=== PATIENT | female | born 1960 | race American Indian/Alaskan Native ===

== ENCOUNTER 2016-08-03 13:33 | Emergency (ER) | payer MEDICAID, OTHER ==
[2016-08-03 13:52] VITALS: BMI 36.3
[2016-08-03 13:56] VITALS: RESP 18; TEMP 98.8; O2SAT 100
--- NOTE | 2016-08-03 14:16 | ED PDOC ---
Arrival/HPI - General Chief Complaint: ENT Problem Time Seen by Provider: 08/03/16 14:08 Historian: Patient - History of Present Illness Narrative History of Present Illness (Text): 08/03/16 14:11 55yo female with history of hypertension present with complaint of clear productive cough, itchy burning throat and right ear pain x 3days. States she took Loratidine without relieve. Denies fever, chills, chest pain, SOB, sick contact, travel. Past Medical History - Provider Review Nursing Documentation Reviewed: Yes - Infectious Disease Hx of Infectious Diseases: None - Reproductive Menopause: Yes - Cardiac Hx Hypertension: Yes - Psychiatric Hx Substance Use: No - Surgical History Hx Section: Yes (x3) - Anesthesia Hx Anesthesia Reactions: No Hx Malignant Hyperthermia: No Family/Social History - Physician Review Nursing Documentation Reviewed: Yes Family/Social History: Unknown Family HX Smoking Status: Never Smoked Hx Alcohol Use: No Hx Substance Use: No Hx Substance Use Treatment: No Allergies/Home Meds Allergies/Adverse Reactions: Allergies No Known Allergies Allergy (Verified 02/11/14 10:54) Home Medications: Home Meds Medication Instructions Recorded Confirmed Enalapril Maleate [Enalapril] 10 mg PO BID 02/11/14 02/11/14 Review of Systems - Physician Review All systems were reviewed & negative as marked: Yes - Review of Systems Constitutional: Normal Eyes: Normal ENT: Sore Throat, Other (Right ear pain) Respiratory: Cough Cardiovascular: Normal Gastrointestinal: Normal Genitourinary Female: Normal Musculoskeletal: Normal Skin: Normal Neurological: Normal Endocrine: Normal Hemo/Lymphatic: Normal Psychiatric: Normal Physical Exam Vital Signs Reviewed: Yes Vital Signs Temp Pulse Resp BP Pulse Ox 08/03/16 15:48 62 18 155/76 H 100 08/03/16 13:34 98.8 F 67 18 123/79 100 Temperature: Afebrile Blood Pressure: Normal Pulse: Regular Respiratory Rate: Normal Appearance: Positive for: Well-Appearing, Non-Toxic, Comfortable Pain Distress: None Mental Status: Positive for: Alert and Oriented X 3 - Systems Exam Head: Present: Atraumatic, Normocephalic Pupils: Present: PERRL Extroacular Muscles: Present: EOMI Conjunctiva: Present: Normal Ears: Present: Normal, NORMAL TM. No: Erythema Mouth: Present: Moist Mucous Membranes Pharnyx: Present: Normal. No: ERYTHEMA, EXUDATE, TONSILS ENLARGED, Peritonsilar Swelling, Uvular Deviation, Muffled/Hoarse Voice, Strider, Soft Palate/Uvular Edema Neck: Present: Normal Range of Motion Respiratory/Chest: Present: Clear to Auscultation, Good Air Exchange. No: Respiratory Distress, Accessory Muscle Use, Wheezes, Decreased Breath Sounds, Rales, Retracting, Rhonchi, Tachypneic Cardiovascular: Present: Regular Rate and Rhythm, Normal S1, S2. No: Murmurs Abdomen: Present: Normal Bowel Sounds. No: Tenderness, Distention, Peritoneal Signs Back: Present: Normal Inspection Upper Extremity: Present: Normal Inspection. No: Cyanosis, Edema Lower Extremity: Present: Normal Inspection. No: Edema Neurological: Present: GCS=15, CN II-XII Intact, Speech Normal Skin: Present: Warm, Dry, Normal Color. No: Rashes Psychiatric: Present: Alert, Oriented x 3, Normal Insight, Normal Concentration Medical Decision Making ED Course and Treatment: 08/03/16 17:32 Chest xray - NAD PT was treated with Zpack and DC home with same medication for URI. Referred to her PMD. TRT ED for any new or worsening symptoms. - RAD Interpretation Radiology Orders: 08/03/16 14:09 CHEST TWO VIEWS (PA/LAT) [RAD] Stat - Medication Orders Current Medication Orders: Discontinued Medications Azithromycin (Zithromax) 500 mg PO STAT STA PRN Reason: Protocol Stop: 08/03/16 15:20 Last Admin: 08/03/16 16:04 Dose: 500 MG Benzonatate (Tessalon Perles) 100 mg PO ONCE STA Stop: 08/03/16 15:21 Last Admin: 08/03/16 16:04 Dose: 100 MG Disposition/Present on Arrival - Present on Arrival Any Indicators Present on Arrival: No History of DVT/PE: No History of Uncontrolled Diabetes: No Urinary Catheter: No History of Decub. Ulcer: No History Surgical Site Infection Following: None - Disposition Have Diagnosis and Disposition been Completed?: Yes Diagnosis: URI (upper respiratory infection) Disposition: HOME/ ROUTINE Disposition Time: 15:25 Patient Plan: Discharge Condition: STABLE Discharge Instructions (ExitCare): Upper Respiratory Infection (ED) Additional Instructions: Follow up with your doctor Return to ED for any new or worsening symptoms Prescriptions: Benzonatate [Tessalon Perles] 100 mg PO TID #20 sgl Azithromycin [Zithromax] 250 mg PO DAILY #4 tab Referrals: PCP,NO [Primary Care Provider] - Follow up with primary
--- NOTE | 2016-08-03 15:25 | RAD ---
HISTORY: cough COMPARISON: 02/11/2014 TECHNIQUE: Chest PA and lateral FINDINGS: LUNGS: No active pulmonary disease. PLEURA: No significant pleural effusion identified. No pneumothorax apparent. CARDIOVASCULAR: Normal. OSSEOUS STRUCTURES: No significant abnormalities. VISUALIZED UPPER ABDOMEN: Normal. OTHER FINDINGS: None. IMPRESSION: No active disease.
[2016-08-03 15:50] VITALS: BP 155/76; PULSE 62
== END 2016-08-03 16:07 | disposition home or self-care (01) ==
LOC: ED 13:33
DX: J06.9 Acute upper respiratory infection, unspecified (principal); I10 Essential (primary) hypertension

== ENCOUNTER 2016-11-08 13:44 | Emergency (ER) | payer MEDICAID, OTHER ==
[2016-11-08 13:57] VITALS: RESP 20; TEMP 98.1; BMI 36.0
[2016-11-08] MEDS ORDERED: Levalbuterol 1.25 MG/3 ML Inhal Soln UD IH STA (14:00)
[2016-11-08] MEDS ORDERED: Magnesium Sulfate 1 gm in D5W 1 GM/100 ML BAG IVPB ONE (14:08)
[2016-11-08] MEDS ORDERED: Ipratropium 0.02% Inhal Soln (0.5 mg/2.5 ml) UD IH STA (14:11)
--- NOTE | 2016-11-08 14:15 | ED PDOC ---
Arrival/HPI <Miguel Villalta - Last Filed: 11/08/16 15:27> <Diallo Newberry - Last Filed: 11/08/16 16:28> - General Chief Complaint: Shortness Of Breath Time Seen by Provider: 11/08/16 13:58 - History of Present Illness Narrative History of Present Illness (Text): 11/08/16 14:12 CC: SOB This patient is a 56yo F w/ a PMHx of Asthma and HTN who is coming to the ED w/ a 2-3d history of worsening shortness of breath. the patient states that as it has been getting hotter, she has been getting more short of breath. She has been using her rescue inhaler every hour for the past two days and still feels short of breath. she has never been intubated or admitted to the hospital for asthma. She denies fevers/chills, CURRY, CP, SOB, abdominal pain, N/V/D, dysuria/ freq/urg, and states that her normal peak flow is 500 and went down to 450 despite her treatments FamHx: denies Allergies: Seasonal Surgeries: cholycystectomy, 3 c sections Meds: Enalapril, Monteleukast, Albuterol pump Social: lives at home, indepdendent all IADL and ADL, denies smoking/etoh/ illicit drugs (Miguel Villalta) Past Medical History - Provider Review Nursing Documentation Reviewed: Yes - Travel History Have you recently traveled outside [place] w/in the past 3 mons?: No - Past History Past History: No Previous - Infectious Disease Hx of Infectious Diseases: None - Cardiac Hx Cardiac Disorders: Yes Hx Hypertension: Yes - Pulmonary Hx Respiratory Disorders: Yes Hx Asthma: Yes Hx Bronchitis: Yes - Neurological Hx Neurological Disorder: No - HEENT Hx HEENT Disorder: No - Renal Hx Renal Disorder: No - Endocrine/Metabolic Hx Endocrine Disorders: No - Hematological/Oncological Hx Blood Disorders: No - Integumentary Hx Dermatological Disorder: No - Musculoskeletal/Rheumatological Hx Musculoskeletal Disorders: No - Gastrointestinal Hx Gastrointestinal Disorders: No - Genitourinary/Gynecological Hx Genitourinary Disorders: No - Psychiatric Hx Psychophysiologic Disorder: No Hx Substance Use: No - Surgical History Hx Section: Yes (x3) Hx Cholecystectomy: Yes - Anesthesia Hx Anesthesia: Yes Hx Anesthesia Reactions: No Hx Malignant Hyperthermia: No <O'juana,Miguel - Last Filed: 11/08/16 15:27> Family/Social History - Physician Review Nursing Documentation Reviewed: Yes Family/Social History: No Known Family HX Smoking Status: Never Smoked Hx Alcohol Use: No Hx Substance Use: No Hx Substance Use Treatment: No <MirthaSteviejuanaMiguel jerez - Last Filed: 11/08/16 15:27> Allergies/Home Meds <MaycojuanaMiguel jerez - Last Filed: 11/08/16 15:27> <ConiDiallo L - Last Filed: 11/08/16 16:28> Allergies/Adverse Reactions: Allergies No Known Allergies Allergy (Verified 02/11/14 10:54) Home Medications: Home Meds Medication Instructions Recorded Confirmed Enalapril Maleate [Enalapril] 10 mg PO BID 02/11/14 11/08/16 Albuterol HFA [Ventolin HFA 90 1 puff IH BID PRN 11/08/16 11/08/16 mcg/actuation (8 g)] Montelukast [Singulair] 10 mg PO DAILY 11/08/16 11/08/16 Review of Systems - Review of Systems Constitutional: Fatigue Eyes: absent: Vision Changes, Photophobia ENT: absent: Hearing Changes, Tinnitus Respiratory: SOB, Cough. absent: Sputum Cardiovascular: absent: Chest Pain, Palpitations, Syncope Gastrointestinal: absent: Abdominal Pain Genitourinary Female: absent: Dysuria Musculoskeletal: absent: Arthralgias Skin: absent: Rash, Pruritis Neurological: absent: Headache, Dizziness Endocrine: absent: Diaphoresis Hemo/Lymphatic: absent: Adenopathy Psychiatric: absent: Anxiety, Depression <MirthaSteviejuanaMiguel jerez - Last Filed: 11/08/16 15:27> Physical Exam Temperature: Afebrile Blood Pressure: Normal Pulse: Regular Respiratory Rate: Normal Appearance: Positive for: Well-Appearing, Non-Toxic, Comfortable Mental Status: Positive for: Alert and Oriented X 3 - Systems Exam Head: Present: Atraumatic, Normocephalic Pupils: Present: PERRL Extroacular Muscles: Present: EOMI Conjunctiva: Present: Normal Mouth: Present: Moist Mucous Membranes Neck: Present: Normal Range of Motion Respiratory/Chest: Present: Clear to Auscultation, Good Air Exchange, Other ( speaking in full sentences not gasping for air no audible wheezes ). No: Respiratory Distress, Accessory Muscle Use, Wheezes Cardiovascular: Present: Regular Rate and Rhythm, Murmurs, Normal S1, S2 Abdomen: No: Tenderness, Distention Back: Present: Normal Inspection. No: CVA Tenderness Upper Extremity: Present: Normal Inspection. No: Cyanosis Lower Extremity: Present: Normal Inspection. No: Edema Neurological: Present: GCS=15, CN II-XII Intact Skin: Present: Warm, Dry, Rashes Psychiatric: Present: Alert, Oriented x 3 <Miguel Villalta - Last Filed: 11/08/16 15:27> Vital Signs Reviewed: Yes <Diallo Newberry - Last Filed: 11/08/16 16:28> Vital Signs Temp Pulse Resp BP Pulse Ox 11/08/16 15:36 80 20 123/73 99 11/08/16 14:01 20 11/08/16 13:56 98.1 F 82 20 126/84 98 Medical Decision Making <Miguel Villalta - Last Filed: 11/08/16 15:27> <Diallo Newberry - Last Filed: 11/08/16 16:28> ED Course and Treatment: 11/08/16 14:16 Chest X-Ray Xopenex, Atrovent, PO Prednisone Will re-assess after treatments 11/08/16 14:30 Chest X-Ray Clear patient is receiving treatments 11/08/16 15:33 The patient is feeling better after treatments and cough medicine the patient is stable for d/c as per dr newberry she was instructed to drink more fluids, and take her medications as prescribed the patient agreed with the treatment plan encouraged to follow up with dr george within the week and come back to the ER for worsening of symptoms Medicines were sent to the [facility] in [place] electronically (Miguel Villalta) A 56 year old female with shortness of breath and cough. In agreement with resident note, which includes further HPI details. Patient was seen and evaluated with resident, came up with plan and treatment together. DDx: Asthma vs Bronchitis vs Pneumonia Patient's CXR was negative. She feels better. Lungs are clear. No w/r/r. No tachypnea. Symptoms are consistant with her asthma and bronchitis. Will prescribe her Prednisone and cough medicine in addition to the use of her nebulizer. She will f/u with her PMD Dr. Felder in 1-2days. Advised to return to the ED is symptoms worsen or any other concern. (Diallo Newberry) - RAD Interpretation Radiology Orders: 11/08/16 14:12 CHEST PORTABLE [RAD] Stat - Medication Orders Current Medication Orders: Discontinued Medications Guaifenesin/Codeine Phosphate (Robitussin W/Codeine) 5 ml PO ONCE STA Stop: 11/08/16 14:58 Last Admin: 11/08/16 15:29 Dose: 5 ml Ipratropium Java (Atrovent) 0.5 mg IH STAT STA Stop: 11/08/16 14:12 Last Admin: 11/08/16 14:38 Dose: 0.5 mg Levalbuterol HCl (Xopenex) 1.25 mg IH STAT STA Stop: 11/08/16 14:01 Last Admin: 11/08/16 14:20 Dose: 1.25 mg Prednisone (Prednisone Tab) 60 mg PO STAT ONE Stop: 11/08/16 14:12 Last Admin: 11/08/16 14:17 Dose: 60 mg <Miguel Villalta - Last Filed: 11/08/16 15:27> - PA / STEAM FITTER HELPER / Resident Statement / has reviewed & agrees with the documentation as recorded. / has examined the patient and agrees with the treatment plan. - Scribe Statement The provider has reviewed the documentation as recorded by the Scribe <Diallo Newberry - Last Filed: 11/08/16 16:28> - Scribe Statement Shara Dowd Provider Scribe Attestation: All medical record entries made by the Scribe were at my direction and personally dictated by me. I have reviewed the chart and agree that the record accurately reflects my personal performance of the history, physical exam, medical decision making, and the department course for this patient. I have also personally directed, reviewed, and agree with the discharge instructions and disposition. (Diallo Newberry) Disposition/Present on Arrival - Present on Arrival Any Indicators Present on Arrival: No History of DVT/PE: No History of Uncontrolled Diabetes: No Urinary Catheter: No History of Decub. Ulcer: No History Surgical Site Infection Following: None - Disposition Have Diagnosis and Disposition been Completed?: Yes Disposition Time: 15:27 Patient Plan: Discharge <Miguel Villalta - Last Filed: 11/08/16 15:27> <Diallo Newberry - Last Filed: 11/08/16 16:28> - Disposition Diagnosis: Asthma Disposition: HOME/ ROUTINE Condition: FAIR Discharge Instructions (ExitCare): Asthma (ED) Prescriptions: Albuterol HFA [Ventolin HFA 90 mcg/actuation (8 g)] 200 puff IH Q4H PRN #1 inh PRN Reason: SOB guaiFENesin [guaifENESIN] 200 mg PO Q4H PRN #1 bottle PRN Reason: Cough predniSONE [Prednisone] 40 mg PO DAILY #10 tab Referrals: PCP,NO [Primary Care Provider] - Follow up with primary
[2016-11-08] MEDS ORDERED: guaiFENesin-Codeine 100-10mg/5ml Syrup (5 ml) UD PO STA (14:57)
--- NOTE | 2016-11-08 15:23 | RAD ---
HISTORY: sob COMPARISON: 08/03/2016 FINDINGS: LUNGS: No active pulmonary disease. PLEURA: No significant pleural effusion identified, no pneumothorax apparent. CARDIOVASCULAR: Normal. OSSEOUS STRUCTURES: No significant abnormalities. VISUALIZED UPPER ABDOMEN: Normal. OTHER FINDINGS: None. IMPRESSION: No active disease.
[2016-11-08 15:38] VITALS: BP 123/73; PULSE 80; O2SAT 99
--- NOTE | 2016-11-09 16:35 | CARD ---
APPROVED REPORT EKG Measurement Heart [id number] <Conclusion> Normal sinus rhythm Normal ECG
== END 2016-11-08 15:38 | disposition home or self-care (01) ==
LOC: ED 13:44
DX: J45.909 Unspecified asthma, uncomplicated (principal)

== ENCOUNTER 2017-01-04 10:11 | Emergency (ER) | payer OTHER ==
[2017-01-04 10:14] VITALS: BMI 35.0
[2017-01-04 10:20] VITALS: RESP 18; TEMP 98.8
[2017-01-04] MEDS ORDERED: Sodium Chloride 0.9% 1,000 ML IV SCH (11:15)
[2017-01-04] MEDS ORDERED: Iohexol 240 (50 ml) ONE (11:30)
[2017-01-04 12:05] LABS: BASO # 0.01 K/mm3 (0.0-2.0); BASO % 0.2 % (0.0-3.0); EOS % 0.6 % (1.5-5.0); GRAN # 2.77 (1.4-6.5); HEMATOCRIT 39.4 % (36.0-48.0); LYMPH # 1.9 (1.2-3.4); LYMPH % 37.4 % (22.0-35.0); MEAN CELL VOLUME 80.2 fl (80.0-105.0); MEAN CORPUSCULAR HEMOGLOBIN 25.5 pg (25.0-35.0); MEAN CORPUSCULAR HGB CONC 31.7 g/dl (31.0-37.0); MEAN PLATELET VOLUME 10.1 fl (7.0-11.0); MONO # 0.3 (0.1-0.6); MONO % 6.8 % (1.0-6.0); RED CELL DISTRIBUTION WIDTH 14.1 % (11.5-14.5)
[2017-01-04 12:14] LABS: ALB/GLOB RATIO 1.2 (1.1-1.8); ALKALINE PHOSPHATASE 86 U/L (38-126); ALT/SGPT 29 U/L (7-56); AST/SGOT 25 U/L (14-36); BILIRUBIN,TOTAL 0.5 mg/dL (0.2-1.3); BLOOD UREA NITROGEN 13 mg/dL (7-21); CALCIUM 9.6 mg/dL (8.4-10.5); CARBON DIOXIDE 29 mmol/L (21-33); GFR AFRICAN-AMERICAN > 60; GLUCOSE,RANDOM 91 mg/dL (70-110); LIPASE 120 U/L (23-300); POTASSIUM 4.2 mmol/L (3.6-5.0); SODIUM 144 mmol/L (132-148); TOTAL PROTEIN 7.9 g/dL (5.8-8.3)
[2017-01-04 12:17] LABS: CHLORIDE 103 mmol/L (98-107)
[2017-01-04 12:26] LABS: TROPONIN I < 0.01 ng/mL
--- NOTE | 2017-01-04 12:41 | RAD ---
HISTORY: cough COMPARISON: Comparison is made to 11/08/2026 FINDINGS: LUNGS: No active pulmonary disease. PLEURA: No significant pleural effusion identified, no pneumothorax apparent. CARDIOVASCULAR: Normal. OSSEOUS STRUCTURES: No significant abnormalities. VISUALIZED UPPER ABDOMEN: Normal. OTHER FINDINGS: None. IMPRESSION: No active disease.
[2017-01-04] MEDS ORDERED: Iohexol 350 MG/100 ML VIAL ONE (13:43)
--- NOTE | 2017-01-04 14:57 | CT ---
PROCEDURE: CT Abdomen and Pelvis with contrast HISTORY: left-sided abdominal pain COMPARISON: None. TECHNIQUE: Contrast dose: 100 cc of Omni 350 Radiation dose: Total exam DLP = 981 mGy-cm. This CT exam was performed using one or more of the following dose reduction techniques: Automated exposure control, adjustment of the mA and/or kV according to patient size, and/or use of iterative reconstruction technique. FINDINGS: LOWER THORAX: Unremarkable. LIVER: Unremarkable. No gross lesion or ductal dilatation. GALLBLADDER AND BILE DUCTS: Gallbladder removed PANCREAS: Unremarkable. No gross lesion or ductal dilatation. SPLEEN: Unremarkable. ADRENALS: Unremarkable. No mass. KIDNEYS AND URETERS: Unremarkable. No hydronephrosis. No solid mass. VASCULATURE: Unremarkable. No aortic aneurysm. BOWEL: There is mural thickening in the descending colon suspicious for colitis. The colon is not distended and there is no oral contrast in the left side of the colon. APPENDIX: Normal appendix. PERITONEUM: Unremarkable. No free fluid. No free air. LYMPH NODES: Unremarkable. No enlarged lymph nodes. BLADDER: Unremarkable. REPRODUCTIVE: Unremarkable. BONES: No acute fracture. OTHER FINDINGS: None. IMPRESSION: There is mural thickening in the descending colon suspicious for colitis. The colon is not distended and there is no oral contrast in the left side of the colon.
--- NOTE | 2017-01-04 15:01 | ED PDOC ---
Arrival/HPI - General Chief Complaint: Abdominal Pain Time Seen by Provider: 01/04/17 11:09 Historian: Patient - History of Present Illness Narrative History of Present Illness (Text): 01/04/17 11:19 A 56 year old female, whose past medical history includes asthma and hypertension, presents to the emergency department complaining of mild nausea and nonproductive cough for 3 days. Patient notes experiencing mild dizziness, abdominal pain, but no fever, chest pain, shortness of breath. Patient has not recently traveled and has not eaten anything abnormal. No sick contacts at home. PMD: Dr. Felder Time/Duration: > week (3 days ago) Symptom Onset: Sudden Symptom Course: Unchanged Past Medical History - Provider Review Nursing Documentation Reviewed: Yes - Travel History Have you recently traveled outside [place] w/in the past 3 mons?: No - Past History Past History: No Previous - Infectious Disease Hx of Infectious Diseases: None - Reproductive Menopause: Yes - Cardiac Hx Cardiac Disorders: Yes Hx Hypertension: Yes - Pulmonary Hx Respiratory Disorders: Yes Hx Asthma: Yes Hx Bronchitis: Yes - Neurological Hx Neurological Disorder: No - HEENT Hx HEENT Disorder: No - Renal Hx Renal Disorder: No - Endocrine/Metabolic Hx Endocrine Disorders: No - Hematological/Oncological Hx Blood Disorders: No - Integumentary Hx Dermatological Disorder: No - Musculoskeletal/Rheumatological Hx Musculoskeletal Disorders: No - Gastrointestinal Hx Gastrointestinal Disorders: No - Genitourinary/Gynecological Hx Genitourinary Disorders: No - Psychiatric Hx Psychophysiologic Disorder: No Hx Substance Use: No - Surgical History Hx Section: Yes (x3) Hx Cholecystectomy: Yes - Anesthesia Hx Anesthesia: Yes Hx Anesthesia Reactions: No Hx Malignant Hyperthermia: No Family/Social History - Physician Review Nursing Documentation Reviewed: Yes Family/Social History: No Known Family HX Smoking Status: Never Smoked Hx Alcohol Use: No Hx Substance Use: No Hx Substance Use Treatment: No Allergies/Home Meds Allergies/Adverse Reactions: Allergies No Known Allergies Allergy (Verified 02/11/14 10:54) Home Medications: Home Meds Medication Instructions Recorded Confirmed Enalapril Maleate [Enalapril] 10 mg PO BID 02/11/14 01/04/17 Fluticasone Propionate [Flonase] 2 each 01/04/17 Review of Systems - Physician Review All systems were reviewed & negative as marked: Yes - Review of Systems Constitutional: absent: Fevers Respiratory: Cough (nonproductive cough). absent: SOB Cardiovascular: absent: Chest Pain Gastrointestinal: Abdominal Pain, Nausea (mild nausea). absent: Food Intolerance Neurological: Dizziness (mild dizziness) Physical Exam Vital Signs Reviewed: Yes Vital Signs Temp Pulse Resp BP Pulse Ox 01/04/17 14:11 77 18 139/86 100 01/04/17 13:30 62 18 136/72 100 01/04/17 12:30 58 L 18 125/87 100 01/04/17 10:11 98.8 F 70 18 137/83 99 Temperature: Afebrile Blood Pressure: Normal Pulse: Regular Respiratory Rate: Normal Appearance: Positive for: Well-Appearing, Non-Toxic, Comfortable Pain Distress: None Mental Status: Positive for: Alert and Oriented X 3 - Systems Exam Head: Present: Atraumatic, Normocephalic Pupils: Present: PERRL Extroacular Muscles: Present: EOMI Conjunctiva: Present: Normal Mouth: Present: Dry Neck: Present: Normal Range of Motion Respiratory/Chest: Present: Clear to Auscultation, Good Air Exchange. No: Respiratory Distress, Accessory Muscle Use Cardiovascular: Present: Regular Rate and Rhythm, Normal S1, S2. No: Murmurs Abdomen: Present: Tenderness (left-side mild tenderness) Back: Present: Normal Inspection Upper Extremity: Present: Normal Inspection. No: Cyanosis, Edema Lower Extremity: Present: Normal Inspection. No: Edema Neurological: Present: GCS=15, CN II-XII Intact, Speech Normal Skin: Present: Warm, Dry, Normal Color. No: Rashes Psychiatric: Present: Alert, Oriented x 3, Normal Insight, Normal Concentration Medical Decision Making ED Course and Treatment: 01/04/17 11:24 Impression: 56 year old female with mild nausea and nonproductive cough. Physical exam shows dry mucous membranes; left-side mild abdominal tenderness. Plan: -- EKG -- Chest X-ray -- Abd/Pelvis CT -- Labs -- Antivert -- IV Fluids -- Urinalysis -- Reassess and disposition Prior Visits: Notes and results from previous visits were reviewed. On 11/08/2016 patient came in complaining of worsening shortness of breath. Patient was discharged home. Progress Notes: EKG: Ordered, reviewed, and independently interpreted the EKG. Rate : 69 BPM Rhythm : NSR Interpretation : No ST-segment elevations or depressions, no T-wave inversions, normal intervals. Comparison : No previous EKG for comparison. 01/04/2017 12:39 Chest X-ray FINDINGS: LUNGS: No active pulmonary disease. PLEURA: No significant pleural effusion identified, no pneumothorax apparent. CARDIOVASCULAR: Normal. OSSEOUS STRUCTURES: No significant abnormalities. VISUALIZED UPPER ABDOMEN: Normal. OTHER FINDINGS: None. IMPRESSION: No active disease. Dictator : EddieAlexis fofanaeleanor 01/04/2017 14:55 Abd/Pelvis CT FINDINGS: LOWER THORAX: Unremarkable. LIVER: Unremarkable. No gross lesion or ductal dilatation. GALLBLADDER AND BILE DUCTS: Gallbladder removed PANCREAS: Unremarkable. No gross lesion or ductal dilatation. SPLEEN: Unremarkable. ADRENALS: Unremarkable. No mass. KIDNEYS AND URETERS: Unremarkable. No hydronephrosis. No solid mass. VASCULATURE: Unremarkable. No aortic aneurysm. BOWEL: There is mural thickening in the descending colon suspicious for colitis. The colon is not distended and there is no oral contrast in the left side of the colon. APPENDIX: Normal appendix. PERITONEUM: Unremarkable. No free fluid. No free air. LYMPH NODES: Unremarkable. No enlarged lymph nodes. BLADDER: Unremarkable. REPRODUCTIVE: Unremarkable. BONES: No acute fracture. OTHER FINDINGS: None. IMPRESSION: There is mural thickening in the descending colon suspicious for colitis. The colon is not distended and there is no oral contrast in the left side of the colon. Dictator : Maco Park MD - Lab Interpretations Lab Results: 01/04/17 11:52 01/04/17 11:52 Lab Results 01/04/17 11:52: Sodium 144, Potassium 4.2, Chloride 103, Carbon Dioxide 29, Anion Gap 16, BUN 13, Creatinine 0.8, Est GFR ( Amer) > 60, Est GFR (Non- Af Amer) > 60, Random Glucose 91, Calcium 9.6, Total Bilirubin 0.5, AST 25, ALT 29, Alkaline Phosphatase 86, Troponin I < 0.01, Total Protein 7.9, Albumin 4.3, Globulin 3.5, Albumin/Globulin Ratio 1.2, Lipase 120 01/04/17 11:52: WBC 5.0 D, RBC 4.91, Hgb 12.5, Hct 39.4, MCV 80.2, MCH 25.5, MCHC 31.7, RDW 14.1, Plt Count 275, MPV 10.1, Gran % 55.0, Lymph % (Auto) 37.4 H , [place] % (Auto) 6.8 H, Eos % (Auto) 0.6 L, Baso % (Auto) 0.2, Gran # 2.77, Lymph # 1.9, [place] # 0.3, Eos # 0.0, Baso # 0.01 I have reviewed the lab results: Yes - RAD Interpretation Radiology Orders: 01/04/17 11:12 CHEST PORTABLE [RAD] Stat 01/04/17 11:23 ABD PELVIS PO & IV CONTRAST [CT] Stat - Medication Orders Current Medication Orders: Discontinued Medications Famotidine (Pepcid) 20 mg IVP STAT STA Stop: 01/04/17 11:25 Last Admin: 01/04/17 12:40 Dose: Sodium Chloride (Sodium Chloride 0.9%) 1,000 mls @ 100 mls/hr IV .Q10H JULIETTE Last Admin: 01/04/17 12:08 Dose: 100 mls/hr Iohexol (Omnipaque 240 (50 Ml)) Confirm Administered Dose 50 ml .ROUTE .STK-MED ONE Stop: 01/04/17 11:31 Iohexol (Omnipaque 350 100 Ml) Confirm Administered Dose 350 mg .ROUTE .STK-MED ONE Stop: 01/04/17 13:44 Meclizine HCl (Antivert) 25 mg PO STAT STA Stop: 01/04/17 11:15 Last Admin: 01/04/17 12:09 Dose: 25 mg Ondansetron HCl (Zofran Inj) 4 mg IVP STAT STA Stop: 01/04/17 11:25 Last Admin: 01/04/17 12:09 Dose: 4 mg - Scribe Statement The provider has reviewed the documentation as recorded by the Manuel Pereira Provider Scribe Attestation: All medical record entries made by the Janetteibchristine were at my direction and personally dictated by me. I have reviewed the chart and agree that the record accurately reflects my personal performance of the history, physical exam, medical decision making, and the department course for this patient. I have also personally directed, reviewed, and agree with the discharge instructions and disposition. Disposition/Present on Arrival - Present on Arrival Any Indicators Present on Arrival: No History of DVT/PE: No History of Uncontrolled Diabetes: No Urinary Catheter: No History of Decub. Ulcer: No History Surgical Site Infection Following: None - Disposition Have Diagnosis and Disposition been Completed?: Yes Diagnosis: Colitis Disposition: HOME/ ROUTINE Disposition Time: 14:50 Condition: IMPROVED Discharge Instructions (ExitCare): Colitis (ED) Additional Instructions: Thank you for letting us take care of you today. Your provider was Dr. Ram. You were treated for colitis. The emergency medical care you received today was directed at your acute symptoms. If you were prescribed any medication, please fill it and take as directed. It may take several days for your symptoms to resolve. Return to the Emergency Department if your symptoms worsen, do not improve, or if you have any other problems. Please contact your doctor or call one of the physicians/clinics you have been referred to that are listed on the Patient Visit Information form that is included in your discharge packet. Bring any paperwork you were given at discharge with you along with any medications you are taking to your follow up visit. Our treatment cannot replace ongoing medical care by a primary care provider (PCP) outside of the emergency department. Thank you for allowing the [employer] team to be part of your care today. Follow up with Dr. Felder in 2-3 days for re-evaluation and further management. Prescriptions: Ciprofloxacin [Cipro] 500 mg PO BID #14 tab metroNIDAZOLE [Flagyl] 500 mg PO Q8 #21 tab Ondansetron ODT [Zofran ODT] 4 mg PO Q6 PRN #20 odt PRN Reason: Nausea/Vomiting Referrals: Michelle Felder MD [Primary Care Provider] - Follow up with primary Forms: [employer] ([place])
[2017-01-04 15:08] VITALS: O2SAT 100
[2017-01-04 15:09] VITALS: BP 139/86; PULSE 77
--- NOTE | 2017-01-04 16:27 | CARD ---
APPROVED REPORT EKG Measurement Heart [id number] <Conclusion> Normal sinus rhythm Normal ECG
== END 2017-01-04 13:30 | disposition home or self-care (01) ==
LOC: ED 10:11
DX: K52.9 Noninfective gastroenteritis and colitis, unspecified (principal)
CPT/HCPCS: 71010; 74177; 80053; 83690; 84484; 85025; 93005; 96374; 99284; J2405; J7040; Q9966; Q9967